=== PATIENT | female | born 1970 | race Caucasian/White ===

== ENCOUNTER 2017-03-24 06:45 | Day surgery (SDC) ==
[2017-03-24] MEDS ORDERED: BETADINE OPTH PREP OP ONE (07:25)
[2017-03-24] MEDS: TETRACAINE 0.5% OPTH SOL OP STA ×2 (07:30→08:05)
[2017-03-24] MEDS ORDERED: LIDOCAINE 1% 2ML (SURGERY ONLY) ID STA (07:39)
[2017-03-24] MEDS ORDERED: LIDOCAINE 1% 20 ML MDV ID STA (07:39)
[2017-03-24] MEDS ORDERED: ZOFRAN 4 MG/2 ML IVP STA (07:40)
[2017-03-24] MEDS ORDERED: VERSED ONE (08:10)
[2017-03-24] MEDS ORDERED: DIPRIVAN 20 ML VIAL IVP ONE (08:10)
[2017-03-24] MEDS ORDERED: SUBLIMAZE ONE (08:10)
[2017-03-24] MEDS ORDERED: TORADOL ONE (08:10)
[2017-03-24] MEDS ORDERED: ERYTHROMYCIN OP ONE (08:25)
[2017-03-24 16:23] VITALS: BP 133/56; TEMP 98.6
--- NOTE | 2017-03-26 10:25 | OP ---
DATE OF SERVICE: 03/24/17 PREOPERATIVE DIAGNOSIS: Large cystic Chalazion right lower lid POSTOPERATIVE DIAGNOSIS: Same PROCEDURE PERFORMED: Chalazion excision with sutured closure FILTER HELPER: assistant purchasing manager Arianna Johnson; Carpenter [employer]: Corry Villarreal ANESTHESIOLOGIST: Samara Caro ANESTHESIA: Local MAC SURGEON: Nika Kothari COMPLICATIONS: None ESTIMATED BLOOD LOSS: None TECHNIQUE: The patient was taken to the operating room and placed in a supine position. The right eye and periocular area were prepped and draped in a routine and sterile fashion. The right lower lid was infiltrated with 2% Xylocaine with Epinephrin. A Chalazion clap was applied to the lower lid. The skin and orbicularis muscle overlaying the Chalazion was incised. The Chalazion contents were removed using the Chalazion curet. Hemostasis was obtain with bipolar cautery. one 6-0 plain gut suture was placed to reapproximate the surgical wound. Antibiotic ointment was applied to surgical site. Chalazion clamp was removed. The patient tolerated the procedure well and discharged to the recovery area in good condition. MILLY
== END 2017-03-24 09:00 | disposition home or self-care (01) ==
LOC: SURG 06:45
PROVIDERS: ATTEND Ophthalmology
DX: H00.12 Chalazion right lower eyelid (principal)